=== PATIENT | female | born 1950 | race Caucasian/White ===

== ENCOUNTER 2018-03-05 19:05 | Inpatient (IN) ==
[2018-03-05] MEDS ORDERED: 0.9 % Sodium Chloride 1,000 ML IVC ONE (19:12)
[2018-03-05] MEDS ORDERED: Ondansetron 4 MG/2 ML VIAL IVP ONE (19:12)
--- NOTE | 2018-03-05 19:12 | Emergency Department Note ---
Addendum entered and electronically signed by Jann Galvez DO 03/12/18 09:07: Refer to other notes as indicated. I was involved with the other resident physician in patient care, but he provided the history of present illness, review of systems, physical exam, medical decision-making and disposition. Original Note: Disposition Clinical Impression: Kidney stone on right side UTI (urinary tract infection) Qualifiers: Urinary tract infection type: site unspecified Hematuria presence: with hematuria Qualified Code(s): N39.0 - Urinary tract infection, site not specified Disposition: Admitted As Inpatient Condition: Good General Adult HPI - General Stated complaint: abd pain Time Seen by Provider: 03/05/18 19:11 - Related Data Allergies Allergy/AdvReac Type Severity Reaction Status Date / Time No Known Allergies Allergy Verified 03/05/18 19:08 Medical Decision Making - Lab Data Result diagrams: 03/05/18 19:58 03/05/18 19:58 Attestation Statement - Attestation Attestation: I examined this patient and my medical decision-making was reviewed with the Resident Physician. I agree with the documented findings, disposition and treatment plan as described except to the extent set forth below. 67 year old femael prsents with complaints of worneeing UTI and failing outpatien thearpy, it appears she has an infected kidney stone on the right. rocephin given, urology consulted and patinet admitted to medicine.
[2018-03-05] MEDS ORDERED: *HR* FentaNYL (PF) 100 MCG/2 ML VIAL IVP ONE ×3 (19:13→21:37)
[2018-03-05] MEDS ORDERED: Isovue-370 500 ML INFUS..BTL IV ONE (19:13)
--- NOTE | 2018-03-05 19:52 | Emergency Department Note ---
Disposition Clinical Impression: Kidney stone on right side UTI (urinary tract infection) Qualifiers: Urinary tract infection type: site unspecified Hematuria presence: with hematuria Qualified Code(s): N39.0 - Urinary tract infection, site not specified Disposition: Admitted As Inpatient Condition: Good Time of Disposition: 21:55 General Adult HPI - General Chief complaint: ED Abdominal Pain Stated complaint: abd pain Time Seen by Provider: 03/05/18 19:11 Source: patient Mode of arrival: ambulatory Limitations: no limitations Nursing Notes Reviewed: Yes Vital Signs Reviewed: Yes - History of Present Illness HPI Narrative: 67 year old woman with hx of prior ovarian cancer s/p total hysterectomy-bso, nephrolithiasis presents to ED complaining of R flank pain, RLQ/pelvic pain. She was woke from sleep with sharp RLQ pain with radiation to R pelvis that has worsened as day went on. She was seen at urgent care this morning and diagnosed with UTI and prescribed cipro and pyridium. She said the pain has worsened and now complaining of R flank pain. She additionally has dysuria, subjective fever/chills, N/V x3 today. She says this feels like when she had previous nephrolithiasis. She denies abdominal pain elsewhere, chest pain, sob, constipation, or hematuria. Last BM was yesterday. Pt Subjective Complaint: R flank pain/RLQ Onset (ago): day(s) Location: back, abdomen, right Radiation: distal Pain Severity: severe Pain Scale: 9 Quality: sharp Consistency: Worsening Improves with: nothing Worsens with: nothing Associated symptoms: Reports: fever/chills, nausea/vomiting Treatments Prior to Arrival: other (cipro, pyridium ) - Related Data Allergies Allergy/AdvReac Type Severity Reaction Status Date / Time No Known Allergies Allergy Verified 03/05/18 19:08 All systems ED: reviewed and negative except as stated. Constitutional: Reports: fever, chills Eyes: Denies: vision change Cardiovascular: Denies: chest pain, dyspnea on exertion, edema Respiratory: Denies: cough, dyspnea Gastrointestinal: Reports: abdominal pain, nausea, vomiting, diarrhea. Denies: constipation, hematemesis, melena, hematochezia Genitourinary: Reports: dysuria. Denies: frequency, hematuria Musculoskeletal: Reports: back pain Neurological: Denies: numbness, paresthesias Physical Exam - General Limitations: no limitations General appearance: alert, in no apparent distress - Head Head exam: atraumatic, normocephalic, normal inspection - Eye Eye exam: Present: normal appearance - ENT ENT exam: mucous membranes moist - Neck Neck exam: Present: trachea midline - Chest Chest inspection: Present: normal inspection, symmetric chest wall rise - Abdominal Exam Abdominal exam: Present: soft, tenderness. Absent: distention, guarding, rebound, rigidity Abdominal tenderness: Present: RLQ, suprapubic, moderate - Extremities Exam Extremities exam: Present: normal capillary refill. Absent: pedal edema - Back Exam Back exam: Present: CVA tenderness (R), paraspinal tenderness. Absent: CVA tenderness (L) - Neurological Exam Neurological exam: Present: alert - Psychiatric Psychiatric exam: Present: normal affect - Skin Skin exam: Present: warm, dry, intact, normal color Course Course Narrative: Uncomfortable appearing woman with R flank pain, RLQ/suprapubic/R pelvic tenderness with R CVA tenderness, dysuria. Treated for UTI today at urgent care and feels like prior nephrolithiasis. Tachycardia/htn likely 2/2 pain. Will work up UTI, pyelonephritis, nephrolithiasis. 2033: wbc 13.1, UA with both signs of infection nitrates, esterase, bacteria, wbc, and tntc micro blood and large blood, CT abd 1. 5 mm stone at the right UV junction causes right obstructive uropathy. 2. Fatty infiltration of liver. Mild splenomegaly. Will give 1g ceftriaxone now. Spoke to Dr Braga and he will see her in consult tomorrow after admission. Will admit to hospitalist service. 2139: Pain improved with fentanyl initially, pain returned, will give more pain control. Blood and urine cultures pending. Spoke to Dr Bauman who accepted admission and requested another 1g ceftriaxone and maintenance fluids which are ordered. Vital Signs Temperature 97.4 F L 03/05/18 19:08 Pulse Rate 120 03/05/18 19:08 Respiratory Rate 18 03/05/18 19:08 Blood Pressure 223/85 03/05/18 19:08 O2 Sat by Pulse Oximetry 95 03/05/18 19:08 Temperature 97.4 F L 03/05/18 20:13 Pulse Rate 111 03/05/18 20:46 Respiratory Rate 19 03/05/18 20:46 Blood Pressure 177/94 03/05/18 20:46 O2 Sat by Pulse Oximetry 98 03/05/18 20:46 Oxygen Delivery Oxygen Delivery Room Air Medical Decision Making - Lab Data Result diagrams: 03/05/18 19:58 03/05/18 19:58 Lab Results 03/05/18 03/05/18 03/05/18 Range/Units 19:58 19:58 20:06 WBC 13.2 H (4.3-11.1) K/mcL RBC 5.02 H (3.82-4.97) M/mcL Hgb 15.3 (11.5-15.4) g/dL Hct 44.6 (35.3-44.9) % MCV 88.8 (83.0-100.0) fL MCH 30.5 (28.0-33.3) pg MCHC 34.3 (31.6-35.5) g/dL RDW 13.0 (11.5-14.5) % Plt Count 80 L (140-400) K/mcL MPV 11.7 (9.4-12.4) fL Immature Gran % 0.5 (0-4) % Seg Neutrophils % 96.4 % Lymphocytes % 1.9 % Monocytes % 0.8 % Eosinophils % 0.2 % Basophils % 0.2 % Neutrophils # 12.7 H (1.6-8.9) K/mcL Lymphocytes # 0.3 L (0.6-4.6) K/mcL Monocytes # 0.1 (0.0-1.3) K/mcL Eosinophils # 0.0 (0.0-0.6) K/mcL Basophils # 0.0 (0.0-0.2) K/mcL Reactive Lymphocytes Present A (Not Present) Toxic Granulation Present A (Not Present) Toxic Vacuolation Present A (Not Present) Platelet Estimate Decreased L (Normal) Large Platelets Present A (Not Present) Immature Plt Fraction 9.6 H (1.1-6.1) % Sodium 141 (136-145) mEq/L Potassium 3.2 L (3.5-5.1) mEq/L Chloride 107 (98-107) mEq/L Carbon Dioxide 22 L (23-29) mEq/L BUN 13 (8-23) mg/dL Creatinine 0.94 (0.60-1.20) mg/dL Est GFR ( Amer) > 60 (> 60) Est GFR (Non-Af Amer) 59 L (> 60) BUN/Creatinine Ratio 14 (6-26) Glucose 126 H (70-105) mg/dL Calculated Osmolality 294 (280-300) Lactic Acid (0.5-2.2) mmol/L Calcium 9.7 (8.6-10.3) mg/dL Magnesium (1.6-2.6) mg/dL Total Bilirubin 1.8 H (0.3-1.0) mg/dL AST 33 (13-39) Units/L ALT 17 (7-52) Units/L Alkaline Phosphatase 117 H (34-104) Units/L Serum Total Protein 7.3 (6.4-8.9) g/dL Albumin 4.0 (3.5-5.7) g/dL Globulin 3.3 (2.4-3.5) g/dL Albumin/Globulin Ratio 1.2 (1.1-2.2) Ur Specimen Adequacy See below A Urine Color [place] A (Yellow) Urine Clarity Cloudy A (Clear) Urine pH 6.0 (5.0-8.0) pH Units Ur Specific [place] 1.021 (1.010-1.025) Urine Protein Trace (Neg-Trace) mg/dL Urine Glucose (UA) Normal (Normal) mg/dL Urine Ketones Trace H (Negative) mg/dL Urine Blood Large H (Negative) Urine Nitrite Positive A (Negative) Urine Bilirubin Negative (Negative) Urine Urobilinogen Normal (Normal) mg/dL Ur Leukocyte Esterase Moderate H (Negative) Urine Microscopic RBC TNTC H (0-3) per hpf Urine Microscopic WBC Present (0-3) per hpf Ur Squamous Epith Cells Present (None-Few) per lpf Urine Bacteria Present (None-Few) per hpf Ur Culture Indicated? YES A (NO) 03/05/18 03/05/18 Range/Units 21:14 21:14 WBC (4.3-11.1) K/mcL RBC (3.82-4.97) M/mcL Hgb (11.5-15.4) g/dL Hct (35.3-44.9) % MCV (83.0-100.0) fL MCH (28.0-33.3) pg MCHC (31.6-35.5) g/dL RDW (11.5-14.5) % Plt Count (140-400) K/mcL MPV (9.4-12.4) fL Immature Gran % (0-4) % Seg Neutrophils % % Lymphocytes % % Monocytes % % Eosinophils % % Basophils % % Neutrophils # (1.6-8.9) K/mcL Lymphocytes # (0.6-4.6) K/mcL Monocytes # (0.0-1.3) K/mcL Eosinophils # (0.0-0.6) K/mcL Basophils # (0.0-0.2) K/mcL Reactive Lymphocytes (Not Present) Toxic Granulation (Not Present) Toxic Vacuolation (Not Present) Platelet Estimate (Normal) Large Platelets (Not Present) Immature Plt Fraction (1.1-6.1) % Sodium (136-145) mEq/L Potassium (3.5-5.1) mEq/L Chloride (98-107) mEq/L Carbon Dioxide (23-29) mEq/L BUN (8-23) mg/dL Creatinine (0.60-1.20) mg/dL Est GFR ( Amer) (> 60) Est GFR (Non-Af Amer) (> 60) BUN/Creatinine Ratio (6-26) Glucose (70-105) mg/dL Calculated Osmolality (280-300) Lactic Acid 2.0 (0.5-2.2) mmol/L Calcium (8.6-10.3) mg/dL Magnesium 1.5 L (1.6-2.6) mg/dL Total Bilirubin (0.3-1.0) mg/dL AST (13-39) Units/L ALT (7-52) Units/L Alkaline Phosphatase (34-104) Units/L Serum Total Protein (6.4-8.9) g/dL Albumin (3.5-5.7) g/dL Globulin (2.4-3.5) g/dL Albumin/Globulin Ratio (1.1-2.2) Ur Specimen Adequacy Urine Color (Yellow) Urine Clarity (Clear) Urine pH (5.0-8.0) pH Units Ur Specific [place] (1.010-1.025) Urine Protein (Neg-Trace) mg/dL Urine Glucose (UA) (Normal) mg/dL Urine Ketones (Negative) mg/dL Urine Blood (Negative) Urine Nitrite (Negative) Urine Bilirubin (Negative) Urine Urobilinogen (Normal) mg/dL Ur Leukocyte Esterase (Negative) Urine Microscopic RBC (0-3) per hpf Urine Microscopic WBC (0-3) per hpf Ur Squamous Epith Cells (None-Few) per lpf Urine Bacteria (None-Few) per hpf Ur Culture Indicated? (NO)
[2018-03-05 20:08] LABS: Basophils % 0.2 %; Hemoglobin 15.3 g/dL (11.5-15.4); Immature Granulocytes % 0.5 % (0-4); Mean Corpuscular Volume 88.8 fL (83.0-100.0)
[2018-03-05 20:10] LABS: Eosinophils % 0.2 %; Hematocrit 44.6 % (35.3-44.9); Immature Platelets 9.6 % (1.1-6.1); Lymphocytes # 0.3 K/mcL (0.6-4.6); Lymphocytes % 1.9 %; Mean Corpuscular HGB Conc 34.3 g/dL (31.6-35.5); Mean Corpuscular Hemoglobin 30.5 pg (28.0-33.3); Mean Platelet Volume 11.7 fL (9.4-12.4); Monocytes # 0.1 K/mcL (0.0-1.3); Monocytes % 0.8 %; Neutrophils # 12.7 K/mcL (1.6-8.9); Platelet Count 80 K/mcL (140-400); Red Blood Count 5.02 M/mcL (3.82-4.97); Segmented Neutrophils % 96.4 %
[2018-03-05 20:21] LABS: Bilirubin,Urine Negative (Negative); Blood,Urine Large (Negative); Color,Urine Orange (Yellow); Glucose,Urine (UA) Normal (Normal); Ketones,Urine Trace mg/dL (Negative); Leukocyte Esterase,Urine Moderate (Negative); Nitrite,Urine Positive (Negative); Protein,Urine Trace mg/dL (Neg-Trace); Specific Gravity,Urine 1.021 (1.010-1.025); Urobilinogen,Urine Normal (Normal)
[2018-03-05 20:22] LABS: Clarity,Urine Cloudy (Clear)
[2018-03-05 20:24] LABS: RBC,Urine TNTC per hpf (0-3)
[2018-03-05] MEDS ORDERED: cefTRIAXone 1,000 MG in Water for inj. (sterile) 20 ML 10 ML IVP ONE ×2 (20:24→21:35)
[2018-03-05 20:25] LABS: Bacteria,Urine Present per hpf (None-Few); Squamous Epithelial Cell,Urine Present per lpf (None-Few); WBC,Urine Present per hpf (0-3)
[2018-03-05 20:26] LABS: Large Platelets Present (Not Present); Platelet Estimate Decreased (Normal); Reactive Lymphocytes Present (Not Present); Toxic Granulation Present (Not Present); Toxic Vacuolation Present (Not Present)
[2018-03-05 20:27] LABS: Alanine Aminotransferase 17 Units/L (7-52); Albumin/Globulin Ratio 1.2 (1.1-2.2); Alkaline Phosphatase 117 Units/L (34-104); Aspartate Amino Transferase 33 Units/L (13-39); BUN/Creatinine Ratio 14 (6-26); Bilirubin,Total 1.8 mg/dL (0.3-1.0); Blood Urea Nitrogen 13 mg/dL (8-23); Calcium 9.7 mg/dL (8.6-10.3); Carbon Dioxide 22 mEq/L (23-29); Chloride 107 mEq/L (98-107); Globulin 3.3 g/dL (2.4-3.5); Glucose 126 mg/dL (70-105); Osmolality,Calculated 294 (280-300); Potassium 3.2 mEq/L (3.5-5.1); Sodium 141 mEq/L (136-145); Total Protein 7.3 g/dL (6.4-8.9); eGFR For Non-African Americans 59 (> 60)
--- NOTE | 2018-03-05 21:24 | Emergency Department Note ---
Disposition Clinical Impression: Kidney stone on right side UTI (urinary tract infection) Qualifiers: Urinary tract infection type: site unspecified Hematuria presence: with hematuria Qualified Code(s): N39.0 - Urinary tract infection, site not specified; R31.9 - Hematuria, unspecified Disposition: Admitted As Inpatient Referrals: Marvin Jade MD [Primary Care Provider] - Forms: ED Satisfaction Letter, Work/School Release General Adult HPI - General Chief complaint: ED Abdominal Pain Stated complaint: abd pain Time Seen by Provider: 03/05/18 19:11 Source: patient Mode of arrival: ambulatory Limitations: no limitations - History of Present Illness Location: back, abdomen, right Pain Scale: 6 Quality: sharp Improves with: nothing Worsens with: nothing Associated symptoms: Reports: fever/chills, nausea/vomiting Treatments Prior to Arrival: other (cipro, pyridium ) - Related Data Allergies Allergy/AdvReac Type Severity Reaction Status Date / Time No Known Allergies Allergy Verified 03/05/18 19:08 Constitutional: Reports: fever, chills Eyes: Denies: vision change Cardiovascular: Denies: chest pain, dyspnea on exertion, edema Respiratory: Denies: cough, dyspnea Gastrointestinal: Reports: abdominal pain, nausea, vomiting, diarrhea. Denies: constipation, hematemesis, melena, hematochezia Genitourinary: Reports: dysuria. 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 - Social History Smoking Status: Never smoker Smokeless Tobacco Status: No Alcohol use: Reports: none Drug use: Reports: none Physical Exam - General Limitations: no limitations General appearance: alert, in no apparent distress Course Vital Signs Temperature 97.4 F L 03/05/18 19:08 Pulse Rate 120 03/05/18 19:08 Respiratory Rate 18 03/05/18 19:08 Blood Pressure 223/85 03/05/18 19:08 O2 Sat by Pulse Oximetry 95 03/05/18 19:08 Temperature 97.4 F L 03/05/18 20:13 Pulse Rate 111 03/05/18 20:46 Respiratory Rate 19 03/05/18 20:46 Blood Pressure 177/94 03/05/18 20:46 O2 Sat by Pulse Oximetry 98 03/05/18 20:46 Oxygen Delivery Oxygen Delivery Room Air Medical Decision Making - Lab Data Result diagrams: 03/05/18 19:58 03/05/18 19:58 Lab Results 03/05/18 03/05/18 03/05/18 Range/Units 19:58 19:58 20:06 WBC 13.2 H (4.3-11.1) K/mcL RBC 5.02 H (3.82-4.97) M/mcL Hgb 15.3 (11.5-15.4) g/dL Hct 44.6 (35.3-44.9) % MCV 88.8 (83.0-100.0) fL MCH 30.5 (28.0-33.3) pg MCHC 34.3 (31.6-35.5) g/dL RDW 13.0 (11.5-14.5) % Plt Count 80 L (140-400) K/mcL MPV 11.7 (9.4-12.4) fL Immature Gran % 0.5 (0-4) % Seg Neutrophils % 96.4 % Lymphocytes % 1.9 % Monocytes % 0.8 % Eosinophils % 0.2 % Basophils % 0.2 % Neutrophils # 12.7 H (1.6-8.9) K/mcL Lymphocytes # 0.3 L (0.6-4.6) K/mcL Monocytes # 0.1 (0.0-1.3) K/mcL Eosinophils # 0.0 (0.0-0.6) K/mcL Basophils # 0.0 (0.0-0.2) K/mcL Reactive Lymphocytes Present A (Not Present) Toxic Granulation Present A (Not Present) Toxic Vacuolation Present A (Not Present) Platelet Estimate Decreased L (Normal) Large Platelets Present A (Not Present) Immature Plt Fraction 9.6 H (1.1-6.1) % Sodium 141 (136-145) mEq/L Potassium 3.2 L (3.5-5.1) mEq/L Chloride 107 (98-107) mEq/L Carbon Dioxide 22 L (23-29) mEq/L BUN 13 (8-23) mg/dL Creatinine 0.94 (0.60-1.20) mg/dL Est GFR ( Amer) > 60 (> 60) Est GFR (Non-Af Amer) 59 L (> 60) BUN/Creatinine Ratio 14 (6-26) Glucose 126 H (70-105) mg/dL Calculated Osmolality 294 (280-300) Calcium 9.7 (8.6-10.3) mg/dL Total Bilirubin 1.8 H (0.3-1.0) mg/dL AST 33 (13-39) Units/L ALT 17 (7-52) Units/L Alkaline Phosphatase 117 H (34-104) Units/L Serum Total Protein 7.3 (6.4-8.9) g/dL Albumin 4.0 (3.5-5.7) g/dL Globulin 3.3 (2.4-3.5) g/dL Albumin/Globulin Ratio 1.2 (1.1-2.2) Ur Specimen Adequacy See below A Urine Color [place] A (Yellow) Urine Clarity Cloudy A (Clear) Urine pH 6.0 (5.0-8.0) pH Units Ur Specific [place] 1.021 (1.010-1.025) Urine Protein Trace (Neg-Trace) mg/dL Urine Glucose (UA) Normal (Normal) mg/dL Urine Ketones Trace H (Negative) mg/dL Urine Blood Large H (Negative) Urine Nitrite Positive A (Negative) Urine Bilirubin Negative (Negative) Urine Urobilinogen Normal (Normal) mg/dL Ur Leukocyte Esterase Moderate H (Negative) Urine Microscopic RBC TNTC H (0-3) per hpf Urine Microscopic WBC Present (0-3) per hpf Ur Squamous Epith Cells Present (None-Few) per lpf Urine Bacteria Present (None-Few) per hpf Ur Culture Indicated? YES A (NO) Attestation Statement - Attestation Attestation: I examined this patient and my medical decision-making was reviewed with the Resident Physician. I agree with the documented findings, disposition and treatment plan as described except to the extent set forth below. 67 year old female presents to the ED with complaints of UTI and abdominal pian and meeting SIRS criteria, it appers she has a infected kidney stone on the right and WBC of 13. WE hae treatd gab [place] , [facility] and [facility] urology who will see her in the morning with admission to medicine
[2018-03-05] MEDS ORDERED: 0.9 % Sodium Chloride 1,000 ML IVC SCH (21:45)
[2018-03-05] MEDS ORDERED: *HR* Metoprolol 5 MG/5 ML VIAL IVP PRN ×2 (22:47→22:52)
[2018-03-05] MEDS ORDERED: Naloxone 0.4 MG/ML INJ IVP PRN (23:26)
[2018-03-05] MEDS ORDERED: *HR* OxyCODONE/APAP 5/325 TABLET PO PRN (23:28)
[2018-03-05] MEDS ORDERED: *HR* FentaNYL (PF) 100 MCG/2 ML VIAL IVP PRN (23:28)
[2018-03-05] MEDS ORDERED: Ondansetron 4 MG/2 ML VIAL IVP PRN (23:37)
--- NOTE | 2018-03-05 23:59 | Internal Med History&Physical ---
<Charles Cai Elaine - Last Filed: 03/06/18 00:40> Date of Encounter: 03/05/18 Time of Encounter: 23:38 Internal Medicine - H&P: HPI Chief complaint: Abdominal/Flank Pain with Dysuria Admitted From: Emergency Dept Plans for Post Hospital Care: Home History of present illness: Ms. Corea is a 67 year old female with a past medical history of ovarian cancer status post total hysterectomy, nephrolithiasis, bladder repair, cholecystectomy, goiter, hypertension. She presented to the emergency department after a day and a half of abdominal pain, right flank pain, dysuria that did not improve with outpatient therapy. She states her symptoms began last night and carried on to this morning wherein she visited the urgent care. She confirms associated symptoms of nausea, vomiting, fever, chills. Her symptoms continued to aggressively worsen causing her to present to the ED. On presentation to the emergency department vitals were significant for tachycardia, hypertension, mildly decreased temperature. Lab values were significant for mildly elevated white count of 13.2, thrombocytopenia, hypokalemia, hypomagnesemia, hyperbilirubinemia, elevated alkaline phosphatase. Urinalysis demonstrated gross and microscopic blood, nitrates and leukocyte esterase, white blood cells. Urine culture and blood cultures were obtained and patient was given [address] abdomen and pelvis was performed which demonstrated an obstructive 5 mm stone at the right ureterovesicular junction. Urology was consulted. Social history negative for smoking, alcohol, drugs. Family history positive for multiple UTIs and pyelonephritis in mother, noncontributory in father or siblings. Past Med Surg Social Fam HX - Past Medical History Medical history: cancer, kidney stones, other Psychiatric history: no psych history - Past Surgical History Surgical History: hysterectomy Additional surgical history: bladder repair, Ovarian Ca, - Social History Smoking Status: Never smoker Smokeless Tobacco Status: No Alcohol use: none Drug use: none Internal Medicine - H&P: Meds Ciprofloxacin [Cipro] 500 mg PO BID 03/05/18 [History] Ergocalciferol (VITAMIN D2) [Vitamin D2] 50,000 unit PO QWEEK 03/05/18 [History] Ibuprofen [Ibu] 400 mg PO TIDWM 03/05/18 [History] Levothyroxine [Synthroid] 150 mcg PO DAILY 03/05/18 [History] Metoprolol Tartrate 100 mg PO BID 03/05/18 [History] Phenazopyrid/Cran/Vit C/B.coag [Azo Urinary Tract Health Pack] 1 each PO TID 03/05/18 [History] Allergy/AdvReac Type Severity Reaction Status Date / Time No Known Allergies Allergy Verified 03/05/18 19:08 All Systems PM: A 10-system review of systems was performed and is negative for pertinent findings except as documented above in the HPI. - Constitutional Vitals: Temp Pulse Resp BP Pulse Ox 97.4 F L 114 16 198/94 97 03/05/18 20:13 03/05/18 22:12 03/05/18 22:12 03/05/18 22:12 03/05/18 22:12 Exam: Patient in no acute distress Alert and oriented 3 Anxious affect Pupils equal and reactive to light Cranial nerves II through XII intact Neck supple, no JVD, positive for bilateral submandibular lymphadenopathy Heart in tachycardic rate and regular rhythm Lungs clear to auscultation bilaterally Abdomen soft and mildly tender to right lower quadrant, normal bowel sounds present Right flank tender to palpation Bilateral lower extremities 1+ pitting edematous Skin warm and dry Internal Med - H&P Results - Labs CBC & Chem 7: 03/05/18 19:58 03/05/18 19:58 Labs: Short CBC 03/05/18 Range/Units 19:58 WBC 13.2 H (4.3-11.1) K/mcL Hgb 15.3 (11.5-15.4) g/dL Hct 44.6 (35.3-44.9) % Plt Count 80 L (140-400) K/mcL Neutrophils # 12.7 H (1.6-8.9) K/mcL BMP 03/05/18 19:58 Sodium 141 Potassium 3.2 L Chloride 107 Carbon Dioxide 22 L BUN 13 Creatinine 0.94 Glucose 126 H Calcium 9.7 Liver Function 03/05/18 Range/Units 19:58 Total Bilirubin 1.8 H (0.3-1.0) mg/dL AST 33 (13-39) Units/L ALT 17 (7-52) Units/L Alkaline Phosphatase 117 H (34-104) Units/L Albumin 4.0 (3.5-5.7) g/dL Urine 03/05/18 Range/Units 20:06 Urine Color [place] A (Yellow) Urine Clarity Cloudy A (Clear) Urine pH 6.0 (5.0-8.0) pH Units Ur Specific [place] 1.021 (1.010-1.025) Urine Protein Trace (Neg-Trace) mg/dL Urine Glucose (UA) Normal (Normal) mg/dL - Impressions ITS Impressions Abdomen/Pelvis CT 03/05/18 19:38 IMPRESSION: 1. 5 mm stone at the right UV junction causes right obstructive uropathy. 2. Fatty infiltration of liver. Mild splenomegaly. D/ / 03/05/2018 21:04:58 Carmen Gallo MD / bcarter Interpreting Provider: Carmen Gallo MD - Assessment and plan (1) Sepsis Current Visit: Yes Status: Acute Assessment and plan: Patient presented with 2 days of right lower quadrant abdominal pain and right flank pain with associated dysuria Vitals revealed hypertension, tachycardia, mild hypothermia Urinalysis revealed gross and microscopic blood, nitrates, leukocyte esterase, white blood cells Labs revealed mild leukocytosis, technically sepsis, stable clinical condition Plan Fluid bolus given and maintenance fluids started at 150 mL per hour Blood and urine cultures pending 2 g Rocephin given and scheduled daily Continuous pulse oximetry and cardiac telemetry Sepsis reassessment at 0600 Qualifiers: Sepsis type: sepsis due to unspecified organism Qualified Code(s): A41.9 - Sepsis, unspecified organism (2) UTI (urinary tract infection) Current Visit: Yes Status: Acute Assessment and plan: Urinalysis as seen above Plan as seen above Qualifiers: Urinary tract infection type: site unspecified Hematuria presence: with hematuria Qualified Code(s): N39.0 - Urinary tract infection, site not specified; R31.9 - Hematuria, unspecified (3) Kidney stone on right side Current Visit: Yes Status: Acute Assessment and plan: 5 mm obstructive stone identified at the right ureterovesicular junction on CT abdomen and pelvis Patient instructed to urinate into hat for screening Urology consultation in the morning Percocet every 6 when necessary for pain control Zofran every 6 hours when necessary for nausea control Fluid regimen as seen above (4) Hypokalemia Current Visit: Yes Status: Acute Assessment and plan: Potassium 3.2 presentation 40 mEq given oral in the emergency department Repeat CMP at 0400 (5) Hypertension Current Visit: Yes Status: Acute Assessment and plan: Patient presented with systolic over 200 Patient is apparently being titrated on blood pressure medications in an outpatient setting We will continue home metoprolol 100 mg twice a day here We will also include hydralazine when necessary for blood pressure control Blood pressure currently stable Qualifiers: Hypertension type: unspecified Qualified Code(s): I10 - Essential (primary) hypertension (6) DVT prophylaxis Current Visit: Yes Status: Acute Assessment and plan: Intermittent pneumatic compression devices 3 times a day Patient currently mildly thrombocytopenic Potential for possible procedure in the morning We will hold anticoagulation - Time Spent With Patient Total time spent is greater than 50% in coordination of care (as documented) at patient's floor/unit and/or counseling patient: <Jose Bauman - Last Filed: 03/06/18 03:55> Date of Encounter: 03/06/18 Time of Encounter: 01:40 - Constitutional Constitutional: chills, fever(s), no night sweats - EENT Eyes: no blurry vision, no change in vision Ears: no ear pain, no tinnitus Nose, mouth and throat: no nasal congestion, no sore throat - Cardiovascular Cardiovascular ROS IM: no chest pain, no dyspnea - Respiratory Respiratory: no cough, no chest congestion, no excessive phlegm production, no change in phlegm color - Gastrointestinal Gastrointestinal: nausea, vomiting, no abdominal pain, no diarrhea, no hematemesis, no hematochezia, no melena - Genitourinary Genitourinary: dysuria, flank pain, urinary frequency, urinary urgency, no hematuria - Musculoskeletal Musculoskeletal ROS IM: no arthralgias, no muscle cramps - Integumentary Integumentary IM: no rash, no jaundice - Neurological Neurological ROS: no dizziness, no focal weakness, no frequent falls, no headache(s) - Psychiatric Psychiatric: no anxiety, no depression - Endocrine Endocrine IM: no polydipsia, no polyuria - Allergic/Immunologic Allergic/Immunologic: no GI upset with certain foods - Constitutional Vitals: Temp Pulse Resp BP Pulse Ox 98 F 107 16 142/83 97 03/05/18 23:36 03/05/18 23:36 03/05/18 23:36 03/05/18 23:36 03/05/18 23:36 General appearance: Present: cooperative, mild distress, A&O X 3, pleasant, answers questions appropriately - Head Head exam: Present: normal inspection - Eye Eye exam: Present: PERRL. Absent: scleral icterus - ENT ENT exam: Present: mucous membranes dry, normal exam, normal oropharynx - Neck Neck exam general surgery: Present: full ROM, supple. Absent: tenderness, nuchal rigidity, thyromegaly - Respiratory Respiratory exam: Present: CTAB. Absent: chest wall tenderness, rales, rhonchi, wheezes - Cardiovascular Cardiovascular exam: Present: +S1, +S2, tachycardia. Absent: diastolic murmur, systolic murmur - GI/Abdominal GI/Abdominal exam: Present: normal bowel sounds, soft, tenderness (right flank radiating to right suprapubic area). Absent: hepatomegaly, mass, splenomegaly - Extremities Exam Extremities exam: Present: warm, radial pulses palpable and symmetrical. Absent: calf tenderness, pedal edema, tenderness - Back Exam Back exam: Present: CVA tenderness (R), normal inspection. Absent: CVA tend erness (L) - Neurological Exam Neurological exam: Present: alert, CN II-XII intact, oriented X3 - Skin Skin exam: Present: dry, intact, warm Internal Med - H&P Results - Labs CBC & Chem 7: 03/05/18 19:58 03/05/18 19:58 Labs: Short CBC 03/05/18 Range/Units 19:58 WBC 13.2 H (4.3-11.1) K/mcL Hgb 15.3 (11.5-15.4) g/dL Hct 44.6 (35.3-44.9) % Plt Count 80 L (140-400) K/mcL Neutrophils # 12.7 H (1.6-8.9) K/mcL BMP 03/05/18 19:58 Sodium 141 Potassium 3.2 L Chloride 107 Carbon Dioxide 22 L BUN 13 Creatinine 0.94 Glucose 126 H Calcium 9.7 Liver Function 03/05/18 Range/Units 19:58 Total Bilirubin 1.8 H (0.3-1.0) mg/dL AST 33 (13-39) Units/L ALT 17 (7-52) Units/L Alkaline Phosphatase 117 H (34-104) Units/L Albumin 4.0 (3.5-5.7) g/dL Urine 03/05/18 Range/Units 20:06 Urine Color [place] A (Yellow) Urine Clarity Cloudy A (Clear) Urine pH 6.0 (5.0-8.0) pH Units Ur Specific [place] 1.021 (1.010-1.025) Urine Protein Trace (Neg-Trace) mg/dL Urine Glucose (UA) Normal (Normal) mg/dL - Impressions ITS Impressions Abdomen/Pelvis CT 03/05/18 19:38 IMPRESSION: 1. 5 mm stone at the right UV junction causes right obstructive uropathy. 2. Fatty infiltration of liver. Mild splenomegaly. D/ / 03/05/2018 21:04:58 Carmen Gallo MD / bcarter Interpreting Provider: Carmen Gallo MD - Assessment and plan (1) Kidney stone on right side Current Visit: Yes Status: Acute (2) UTI (urinary tract infection) Current Visit: Yes Status: Acute Qualifiers: Urinary tract infection type: site unspecified Hematuria presence: with hematuria Qualified Code(s): N39.0 - Urinary tract infection, site not specified; R31.9 - Hematuria, unspecified (3) Hypertension Current Visit: Yes Status: Acute Qualifiers: Hypertension type: unspecified Qualified Code(s): I10 - Essential (primary) hypertension (4) Sepsis Current Visit: Yes Status: Acute Qualifiers: Sepsis type: sepsis due to unspecified organism Qualified Code(s): A41.9 - Sepsis, unspecified organism (5) Hypokalemia Current Visit: Yes Status: Acute (6) DVT prophylaxis Current Visit: Yes Status: Acute - Time Spent With Patient Total time spent is greater than 50% in coordination of care (as documented) at patient's floor/unit and/or counseling patient: - Attending Attestation I discussed the patient [place], past medical history, review of systems, lab data, exam findings, and imaging findings with Dr. Cai. I then saw and examined patient independently as well. Patient appears to be quite ill but nontoxic. She does meet sepsis criteria. She still appears to be dry. She has clinical and historical findings to suggest and support pyelonephritis with sepsis. Blood pressure is preserved, however. Blood and urine cultures have been obtained. We will place her on high-dose Rocephin. Urology has been consulted, and she will likely need cystoscopy today to help alleviate her obstruction. She denies any chest pain, shortness of breath, cough, or hemoptysis. She has had some nausea and vomiting but no diarrhea. On exam, she appears dry as noted above. We will continue current plan and await urologic intervention later today. We will keep her on telemetry and close monitoring of her hemodynamic status. Other than my comments above and noted physical exam findings, I agree Dr. Cai's assessment and plan.
[2018-03-06 04:10] LABS: Basophils % 0.2 %; Mean Corpuscular Volume 90.6 fL (83.0-100.0); Red Cell Distribution Width 13.2 % (11.5-14.5)
[2018-03-06 04:12] LABS: Basophils # 0.1 K/mcL (0.0-0.2); Hematocrit 39.5 % (35.3-44.9); Hemoglobin 13.2 g/dL (11.5-15.4); Immature Granulocytes % 0.9 % (0-4); Immature Platelets 11.3 % (1.1-6.1); Lymphocytes # 0.5 K/mcL (0.6-4.6); Mean Corpuscular HGB Conc 33.4 g/dL (31.6-35.5); Mean Corpuscular Hemoglobin 30.3 pg (28.0-33.3); Mean Platelet Volume 12.1 fL (9.4-12.4); Monocytes # 1.1 K/mcL (0.0-1.3); Monocytes % 4.5 %; Neutrophils # 22.6 K/mcL (1.6-8.9); Red Blood Count 4.36 M/mcL (3.82-4.97); Segmented Neutrophils % 92.4 %
[2018-03-06 04:18] LABS: Platelet Count 77 K/mcL (140-400)
[2018-03-06 04:33] LABS: Alanine Aminotransferase 16 Units/L (7-52); Albumin 3.2 g/dL (3.5-5.7); Albumin/Globulin Ratio 1.1 (1.1-2.2); Alkaline Phosphatase 77 Units/L (34-104); Aspartate Amino Transferase 23 Units/L (13-39); BUN/Creatinine Ratio 13 (6-26); Bilirubin,Total 0.7 mg/dL (0.3-1.0); Blood Urea Nitrogen 11 mg/dL (8-23); Calcium 8.5 mg/dL (8.6-10.3); Carbon Dioxide 23 mEq/L (23-29); Chloride 111 mEq/L (98-107); Globulin 2.8 g/dL (2.4-3.5); Glucose 159 mg/dL (70-105); Magnesium 1.9 mg/dL (1.6-2.6); Osmolality,Calculated 295 (280-300); Potassium 4.1 mEq/L (3.5-5.1); Sodium 141 mEq/L (136-145); eGFR For Non-African Americans > 60 (> 60)
[2018-03-06] MEDS ORDERED: *HR* Heparin 5,000 UNIT/ML VIAL SQ SCH (06:00)
[2018-03-06] MEDS ORDERED: *HR* Propofol 200 MG/20 ML VIAL IVP ONE (07:04)
[2018-03-06] MEDS ORDERED: Ondansetron 4 MG/2 ML VIAL ONE (07:04)
[2018-03-06] MEDS ORDERED: Dexamethasone 4 MG/ML VIAL ONE (07:04)
[2018-03-06] MEDS ORDERED: Lidocaine -MPF 2% 2 ML VIAL ONE (07:04)
[2018-03-06] MEDS ORDERED: *HR* FentaNYL (PF) 100 MCG/2 ML VIAL ONE (07:04)
[2018-03-06] MEDS ORDERED: *HR* Midazolam HCl 2 MG/2 ML VIAL ONE (07:08)
--- NOTE | 2018-03-06 07:10 | Urology - Consult Note ---
Date of Encounter: 03/06/18 Time of Encounter: 07:07 - Assessment and Plan (1) Right ureteral stone Current Visit: Yes Status: Acute Assessment and plan: We will plan on performing cystoscopy and right ureteral stent placement today. (2) UTI (urinary tract infection) Current Visit: Yes Status: Acute Assessment and plan: Patient will need to continue with broad-spectrum antibiotics until cultures return. Qualifiers: Urinary tract infection type: site unspecified Hematuria presence: with hematuria Qualified Code(s): N39.0 - Urinary tract infection, site not specified; R31.9 - Hematuria, unspecified Urology CN:HPI Consult date: 03/06/18 Reason for consult Urology: Hydronephrosis Requesting physician: Charles Cai History of present illness: Mary is a 67-year-old female who presented to emergency Department yesterday secondary to severe unrelenting right-sided flank pain. Patient was treated on Wednesday for a possible UTI with urgent care. Patient was found to have a 5 mm distal right ureteral stone on CT scan. Patient also with nitrite positive urinalysis. Patient initially without any fevers. Her WBC count has increased to 24,000 overnight. Patient states her pain is controlled with pills at this time. No current nausea or vomiting. Past Med Surg Social Fam HX - Past Medical History Medical history: cancer, kidney stones, other Psychiatric history: no psych history - Past Surgical History Surgical History: hysterectomy Additional surgical history: bladder repair, Ovarian Ca, - Social History Smoking Status: Never smoker Smokeless Tobacco Status: No Alcohol use: none Drug use: none Medications and Allergies Ciprofloxacin [Cipro] 500 mg PO BID 03/05/18 [History] Ergocalciferol (VITAMIN D2) [Vitamin D2] 50,000 unit PO QWEEK 03/05/18 [History] Ibuprofen [Ibu] 400 mg PO TIDWM 03/05/18 [History] Levothyroxine [Synthroid] 150 mcg PO DAILY 03/05/18 [History] Metoprolol Tartrate 100 mg PO BID 03/05/18 [History] Phenazopyrid/Cran/Vit C/B.coag [Azo Urinary Tract Health Pack] 1 each PO TID 03/05/18 [History] Allergy/AdvReac Type Severity Reaction Status Date / Time No Known Allergies Allergy Verified 03/05/18 19:08 Review of Systems - Constitutional no chills, no fever(s) - EENT Nose, mouth and throat: no dizziness - Cardiovascular no chest pain - Respiratory no cough Exam Initial Vital Signs Temp Pulse Resp BP Pulse Ox 97.4 F L 120 18 223/85 95 03/05/18 19:08 03/05/18 19:08 03/05/18 19:08 03/05/18 19:08 03/05/18 19:08 - General physical appearance Present: well developed, well nourished - Eyes Present: PERRL - Cardiovascular Cardiovascular exam IM: RRR - Abdomen Abdomen: Present: soft Urology Results - Labs 03/06/18 03:50 03/06/18 03:50 Abnormal lab results WBC 24.5 K/mcL (4.3-11.1) H D 03/06/18 03:50 Plt Count 77 K/mcL (140-400) L 03/06/18 03:50 Neutrophils # 22.6 K/mcL (1.6-8.9) H 03/06/18 03:50 Lymphocytes # 0.5 K/mcL (0.6-4.6) L 03/06/18 03:50 Reactive Lymphocytes Present (Not Present) A 03/05/18 19:58 Toxic Granulation Present (Not Present) A 03/05/18 19:58 Toxic Vacuolation Present (Not Present) A 03/05/18 19:58 Platelet Estimate Decreased (Normal) L 03/05/18 19:58 Large Platelets Present (Not Present) A 03/05/18 19:58 Immature Plt Fraction 11.3 % (1.1-6.1) H 03/06/18 03:50 Chloride 111 mEq/L (98-107) H 03/06/18 03:50 Glucose 159 mg/dL (70-105) H 03/06/18 03:50 Calcium 8.5 mg/dL (8.6-10.3) L 03/06/18 03:50 Serum Total Protein 6.0 g/dL (6.4-8.9) L 03/06/18 03:50 Albumin 3.2 g/dL (3.5-5.7) L 03/06/18 03:50 Ur Specimen Adequacy See below A 03/05/18 20:06 Urine Color [place] (Yellow) A 03/05/18 20:06 Urine Clarity Cloudy (Clear) A 03/05/18 20:06 Urine Ketones Trace mg/dL (Negative) H 03/05/18 20:06 Urine Blood Large (Negative) H 03/05/18 20:06 Urine Nitrite Positive (Negative) A 03/05/18 20:06 Ur Leukocyte Esterase Moderate (Negative) H 03/05/18 20:06 Urine Microscopic RBC TNTC per hpf (0-3) H 03/05/18 20:06 Ur Culture Indicated? YES (NO) A 03/05/18 20:06 Diabetes panel 03/05/18 03/06/18 Range/Units 19:58 03:50 Sodium 141 141 (136-145) mEq/L Potassium 3.2 L 4.1 D (3.5-5.1) mEq/L Chloride 107 111 H (98-107) mEq/L Carbon Dioxide 22 L 23 (23-29) mEq/L BUN 13 11 (8-23) mg/dL Creatinine 0.94 0.82 (0.60-1.20) mg/dL Glucose 126 H 159 H (70-105) mg/dL Calcium 9.7 8.5 L (8.6-10.3) mg/dL AST 33 23 (13-39) Units/L ALT 17 16 (7-52) Units/L Alkaline Phosphatase 117 H 77 (34-104) Units/L Albumin 4.0 3.2 L (3.5-5.7) g/dL Calcium panel 03/05/18 03/06/18 Range/Units 19:58 03:50 Calcium 9.7 8.5 L (8.6-10.3) mg/dL Albumin 4.0 3.2 L (3.5-5.7) g/dL Pituitary panel 03/05/18 03/06/18 Range/Units 19:58 03:50 Sodium 141 141 (136-145) mEq/L Potassium 3.2 L 4.1 D (3.5-5.1) mEq/L Chloride 107 111 H (98-107) mEq/L Carbon Dioxide 22 L 23 (23-29) mEq/L BUN 13 11 (8-23) mg/dL Creatinine 0.94 0.82 (0.60-1.20) mg/dL Glucose 126 H 159 H (70-105) mg/dL Calcium 9.7 8.5 L (8.6-10.3) mg/dL Adrenal panel 03/05/18 03/06/18 Range/Units 19:58 03:50 Sodium 141 141 (136-145) mEq/L Potassium 3.2 L 4.1 D (3.5-5.1) mEq/L Chloride 107 111 H (98-107) mEq/L Carbon Dioxide 22 L 23 (23-29) mEq/L BUN 13 11 (8-23) mg/dL Creatinine 0.94 0.82 (0.60-1.20) mg/dL Glucose 126 H 159 H (70-105) mg/dL Calcium 9.7 8.5 L (8.6-10.3) mg/dL Total Bilirubin 1.8 H 0.7 (0.3-1.0) mg/dL AST 33 23 (13-39) Units/L ALT 17 16 (7-52) Units/L Alkaline Phosphatase 117 H 77 (34-104) Units/L Albumin 4.0 3.2 L (3.5-5.7) g/dL All other labs normal. - Imaging CT scan - abdomen: image reviewed CT scan - pelvis: image reviewed Consult Discharge Plan - Plan Referrals: Marvin Jade MD [Primary Care Provider] -
--- NOTE | 2018-03-06 07:17 | Anesthesia Evaluation PreOp ---
Date of Encounter: 03/06/18 Time of Encounter: 07:15 - Past History Planned Operation: R-ureteroscopic stone extraction Cardiac History: HTN Pulmonary History: Denies Any Significant HX CERTIFIED HYPERBARIC TECHNICIAN History: Denies Any Significant HX Other Medical History: Thyroid (Hypothyroidism), Other (Hx ovarian Ca s/p JOVANNY) Anesthesia History: No Prior Anesthetic Complications, Past Anesthesia (JOVANNY,) Alcohol Use: none Drug use: none Medications and Allergies Ciprofloxacin [Cipro] 500 mg PO BID 03/05/18 [History] Ergocalciferol (VITAMIN D2) [Vitamin D2] 50,000 unit PO QWEEK 03/05/18 [History] Ibuprofen [Ibu] 400 mg PO TIDWM 03/05/18 [History] Levothyroxine [Synthroid] 150 mcg PO DAILY 03/05/18 [History] Metoprolol Tartrate 100 mg PO BID 03/05/18 [History] Phenazopyrid/Cran/Vit C/B.coag [Azo Urinary Tract Health Pack] 1 each PO TID 03/05/18 [History] Allergy/AdvReac Type Severity Reaction Status Date / Time No Known Allergies Allergy Verified 03/05/18 19:08 - Meds/Allergy Pre-op Review Medications Reviewed: Yes Allergies Reviewed: Yes Beta Blockers on Current Med List: Yes (Metoprolol) Anesthesia Results - Labs 03/06/18 03:50 03/06/18 03:50 Laboratory Tests 03/06/18 03:50 Calcium 8.5 L Magnesium 1.9 Laboratory Results Impressions Abdomen/Pelvis CT 03/05/18 19:38 IMPRESSION: 1. 5 mm stone at the right UV junction causes right obstructive uropathy. 2. Fatty infiltration of liver. Mild splenomegaly. D/ / 03/05/2018 21:04:58 Carmen Gallo MD / bcarter Interpreting Provider: Carmen Gallo MD Anesthesia Exam Vital Signs Temp Pulse Resp BP Pulse Ox 03/06/18 06:43 98.4 F 71 18 151/74 99 03/06/18 04:40 97.9 F 89 15 138/78 98 03/05/18 23:36 98 F 107 16 142/83 97 03/05/18 22:12 114 16 198/94 97 03/05/18 20:46 111 19 177/94 98 03/05/18 20:13 97.4 F L 111 19 177/94 98 03/05/18 19:08 97.4 F L 120 18 223/85 95 Height: 5'2" Weight: 221# BMI = 41 NPO (# of Hours): MNoc - HEENT Pupil (Motor): Pupils equal, EOMI Mallampati: III Teeth: Normal Oral Opening: Greater than 3 - CERTIFIED HYPERBARIC TECHNICIAN LOC: Oriented CERTIFIED HYPERBARIC TECHNICIAN Motor: Normal RUE, Normal LUE, Normal RLE, Normal LLE, Normal Face CERTIFIED HYPERBARIC TECHNICIAN Sensory: Normal: RUE, LUE, RLE, LLE, Face - Cardiac Rhythm: Regular Murmur: None JVD: No - Pulmonary Breath Sounds: bilateral Clear Respiratory Effort: Symmetrical Anesthesia Assess/Plan ASA Score: 3 (MO/BMI = 42, HTN, Hx ovarian Ca) Modified Yogi Scale for Level of Consciousness: Cooperative, oriented, and tranquil Anesthetic Plan: General Monitoring Plan: Standard Monitors Recovery Plan: PACU Anes Supervising Prov Stmt: PT seen/evaluated, R&B Discussed, questions answered and consent obtained. Marlene Higgins MD
[2018-03-06] MEDS ORDERED: *HR* Labetalol 20 MG/4 ML SYRINGE IVP PRN (07:40)
[2018-03-06] MEDS ORDERED: *HR* Morphine 2 MG/ML SYRINGE IVP PRN (07:40)
[2018-03-06] MEDS ORDERED: Famotidine 20 MG/2 ML VIAL ONE (08:07)
[2018-03-06] MEDS ORDERED: Acetaminophen IV 1,000 MG/100 ML INFUS..BTL ONE (08:07)
[2018-03-06] MEDS ORDERED: *HR* Metoprolol 5 MG/5 ML VIAL IVP ONE (08:18)
--- NOTE | 2018-03-06 08:25 | Operative Note ---
Date of procedure: 03/06/18 Pre-op diagnosis: right distal ureteral stone with uti Post-op diagnosis: same Procedure: Cystoscopy with right 6 x 26 cm ureteral stent placement Anesthesia: GETA Surgeon: Marko Braga Was there an electrical assistant present: No Estimated blood loss (cc): 0 Specimen: none Condition: stable Disposition: PACU Procedure in Detail: Patient was prepped and draped in normal sterile fashion. Timeout procedure performed. I then inserted the cystoscope into the patient's bladder. I was able to cannulate the right ureteral orifice using a sensor wire. Once this was done a moderate amount of debris was seen coming from the right ureteral orifice. I then placed a 6 x 26 cm stent with good curl seen in the right kidney and in the bladder. I then placed a Altman catheter to aid in drainage over the next 24 hours. Procedure was ended. Patient was taken to PACU in stable condition.
[2018-03-06] MEDS ORDERED: Metoprolol 100 MG TABLET PO SCH (09:00)
[2018-03-06] MEDS ORDERED: Ondansetron 4 MG/2 ML VIAL IVP PRN (09:18)
[2018-03-06] MEDS ORDERED: Naloxone 0.4 MG/ML INJ IVP PRN (09:18)
[2018-03-06] MEDS ORDERED: *HR* FentaNYL (PF) 100 MCG/2 ML VIAL IVP PRN (09:18)
[2018-03-06] MEDS ORDERED: *HR* OxyCODONE/APAP 5/325 TABLET PO PRN (09:18)
[2018-03-06] MEDS ORDERED: 0.9 % Sodium Chloride 1,000 ML IVC SCH (09:18)
--- NOTE | 2018-03-06 11:12 | Internal Med Progress Note ---
<Sri Mesa - Last Filed: 03/06/18 11:09> Hospitalist Progress Note - Encounter Date of Encounter: 03/06/18 Time of Encounter: 10:45 - Subjective Interval History: Ms. Engle was seen at bedside this morning. At presentation her blood pressure was elevated and she was also tachycardic. This morning her blood pressure and heart rate are within normal limits. She notes that she had urinary hesitancy and urgency ongoing for the past 1 week. He also had right flank pain associated with it since the past 1 week. Yesterday she had 3 episodes of emesis that were nonbloody and also had chills. He went to the urgent care and they urged her to go to visit the hospital. This morning she is status post cystoscopy. She notes her pain has slightly improved. Currently she denies fever, chills, nausea, shortness of breath, chest pain or abdominal pain. - Exam Vitals: Temp Pulse Resp BP Pulse Ox 98.0 F 82 16 120/73 98 03/06/18 10:20 03/06/18 10:20 03/06/18 10:20 03/06/18 10:20 03/06/18 10:20 Exam: Constitutional: Alert, in no acute distress, sitting in bed HEENT: Normocephalic, atraumatic, moist mucus membranes Heart: Regular rhythm, no murmurs, no edema Lungs: lungs clear and equal bilaterally, no rhonchi, no wheeze Abdomen: diminished bowel sounds, no rigidity, mildly tender around the right flank abdomen area Back: tenderness at right flank area Extremities: No edema of lower extremity or upper extremities, warm, nontender Skin: Skin warm and dry, no lesions, no rashes, no jaundice Psych: thought content congruent, normal mood and normal affect Neurological: Alert and oriented x 3 - Assessment and Plan (1) Kidney stone on right side Current Visit: Yes Status: Acute Assessment and Plan: Status post cystoscopy with right 6 x 26 cm ureteral stent placement. 5 mm obstructive stone identified at the right ureterovesicular junction on CT abdomen and pelvis Percocet every 6 when necessary for pain control Zofran every 6 hours when necessary for nausea control Continue fluids Urology following (2) UTI (urinary tract infection) Current Visit: Yes Status: Acute Assessment and Plan: Secondary to an obstructing stone. Urinalysis was positive for nitrites as well as leukocyte esterase. Urine culture pending Plan as seen above (3) Hypertension Current Visit: Yes Status: Acute Assessment and Plan: Patient presented with systolic blood pressure over 200 Patient is apparently being titrated on blood pressure medications in an outpatient setting We will continue home metoprolol 100 mg twice a day here Blood pressure currently low to stable could be due to anesthetic affects s/p post ureterolithiasis Continue to monitor (4) Sepsis Current Visit: Yes Status: Acute Assessment and Plan: Likely secondary to Patient presented with 2 days of right lower quadrant abdominal pain and right flank pain with associated dysuria Vitals revealed hypertension, tachycardia, mild hypothermia Urinalysis revealed gross and microscopic blood, nitrates, leukocyte esterase, white blood cells Labs revealed mild leukocytosis, technically sepsis, stable clinical condition Plan Fluid bolus given and maintenance fluids started at 150 mL per hour Blood and urine cultures pending Continue Rocephin, day 1 Continuous pulse oximetry and cardiac telemetry (5) Hypokalemia Current Visit: Yes Status: Resolved Assessment and Plan: Resolved. Potassium 3.2 presentation 40 mEq given oral in the emergency department Repeat BMP in the morning (6) CORNELL on CPAP Current Visit: Yes Status: Acute Assessment and Plan: History of sleep apnea and is on CPAP at home. Will continue CPAP during her stay here. Continue supplemental oxygen at this time, given shortness of breath. (7) Morbid obesity Current Visit: Yes Status: Acute Assessment and Plan: BMI is 40.5. Changed diet from regular to low fat. (8) Thrombocytopenia Current Visit: Yes Status: Acute Assessment and Plan: Platelets were 80 upon admission. Morning platelets are 77. Thrombocytopenia could be likely due to sepsis vs other etiology given she has history of ovarian cancer We will continue to monitor We will continue to treat the underlying infection (9) DVT prophylaxis Current Visit: Yes Status: Acute Assessment and Plan: Intermittent pneumatic compression devices 3 times a day Patient currently mildly thrombocytopenic (10) Constipation Current Visit: Yes Status: Acute Assessment and Plan: Notes her last bowel movement was 2 days ago and tends to have regular bowel movements. He also associates emesis yesterday to being constipated. Plan: Continue Senna as she is currently on opiotes for pain control - Time Spent with Patient Total time spent is greater than 50% in coordination of care (as documented) at patient's floor/unit and/or counseling patient: Plan of Care Discussed with: patient Internal Medicine: Result - Labs CBC & Chem 7: 03/06/18 03:50 03/06/18 03:50 Labs: Short CBC 03/05/18 03/06/18 Range/Units 19:58 03:50 WBC 13.2 H 24.5 H D (4.3-11.1) K/mcL Hgb 15.3 13.2 D (11.5-15.4) g/dL Hct 44.6 39.5 (35.3-44.9) % Plt Count 80 L 77 L (140-400) K/mcL Neutrophils # 12.7 H 22.6 H (1.6-8.9) K/mcL BMP 03/05/18 03/06/18 19:58 03:50 Sodium 141 141 Potassium 3.2 L 4.1 D Chloride 107 111 H Carbon Dioxide 22 L 23 BUN 13 11 Creatinine 0.94 0.82 Glucose 126 H 159 H Calcium 9.7 8.5 L Liver Function 03/05/18 03/06/18 Range/Units 19:58 03:50 Total Bilirubin 1.8 H 0.7 (0.3-1.0) mg/dL AST 33 23 (13-39) Units/L ALT 17 16 (7-52) Units/L Alkaline Phosphatase 117 H 77 (34-104) Units/L Albumin 4.0 3.2 L (3.5-5.7) g/dL Urine 03/05/18 Range/Units 20:06 Urine Color [place] A (Yellow) Urine Clarity Cloudy A (Clear) Urine pH 6.0 (5.0-8.0) pH Units Ur Specific [place] 1.021 (1.010-1.025) Urine Protein Trace (Neg-Trace) mg/dL Urine Glucose (UA) Normal (Normal) mg/dL - Impressions Impressions Abdomen/Pelvis CT 03/05/18 19:38 IMPRESSION: 1. 5 mm stone at the right UV junction causes right obstructive uropathy. 2. Fatty infiltration of liver. Mild splenomegaly. D/ / 03/05/2018 21:04:58 Carmen Gallo MD / bcarter Interpreting Provider: Carmne Gallo MD Fluoroscopy 03/06/18 00:00 IMPRESSION: Intraoperative fluoroscopy provided during right ureteral stent placement. Please see the intraoperative note for complete details. D/ / Jose Luciano MD / Jose Luciano MD Interpreting Provider: Jose Luciano MD X-Ray 03/06/18 00:00 IMPRESSION: Intraoperative fluoroscopy provided during right ureteral stent placement. Please see the intraoperative note for complete details. D/ / Jose Luciano MD / Jose Luciano MD Interpreting Provider: Jose Luciano MD Consult Discharge Plan - Plan Referrals: Marvin Jade MD [Primary Care Provider] - <Marco Antonio Schwartz - Last Filed: 03/06/18 15:17> Hospitalist Progress Note - Exam Vitals: Temp Pulse Resp BP Pulse Ox 98.5 F 56 18 119/72 94 03/06/18 15:10 03/06/18 15:10 03/06/18 15:10 03/06/18 15:10 03/06/18 15:10 - Assessment and Plan (1) Kidney stone on right side Current Visit: Yes Status: Acute (2) UTI (urinary tract infection) Current Visit: Yes Status: Acute (3) Hypertension Current Visit: Yes Status: Acute (4) Sepsis Current Visit: Yes Status: Acute (5) Hypokalemia Current Visit: Yes Status: Resolved (6) DVT prophylaxis Current Visit: Yes Status: Acute (7) CORNELL on CPAP Current Visit: Yes Status: Acute (8) Morbid obesity Current Visit: Yes Status: Acute (9) Thrombocytopenia Current Visit: Yes Status: Acute (10) Constipation Current Visit: Yes Status: Acute - Time Spent with Patient Total time spent is greater than 50% in coordination of care (as documented) at patient's floor/unit and/or counseling patient: Internal Medicine: Result - Labs CBC & Chem 7: 03/06/18 03:50 03/06/18 03:50 Labs: Short CBC 03/05/18 03/06/18 Range/Units 19:58 03:50 WBC 13.2 H 24.5 H D (4.3-11.1) K/mcL Hgb 15.3 13.2 D (11.5-15.4) g/dL Hct 44.6 39.5 (35.3-44.9) % Plt Count 80 L 77 L (140-400) K/mcL Neutrophils # 12.7 H 22.6 H (1.6-8.9) K/mcL BMP 03/05/18 03/06/18 19:58 03:50 Sodium 141 141 Potassium 3.2 L 4.1 D Chloride 107 111 H Carbon Dioxide 22 L 23 BUN 13 11 Creatinine 0.94 0.82 Glucose 126 H 159 H Calcium 9.7 8.5 L Liver Function 03/05/18 03/06/18 Range/Units 19:58 03:50 Total Bilirubin 1.8 H 0.7 (0.3-1.0) mg/dL AST 33 23 (13-39) Units/L ALT 17 16 (7-52) Units/L Alkaline Phosphatase 117 H 77 (34-104) Units/L Albumin 4.0 3.2 L (3.5-5.7) g/dL Urine 03/05/18 Range/Units 20:06 Urine Color [place] A (Yellow) Urine Clarity Cloudy A (Clear) Urine pH 6.0 (5.0-8.0) pH Units Ur Specific [place] 1.021 (1.010-1.025) Urine Protein Trace (Neg-Trace) mg/dL Urine Glucose (UA) Normal (Normal) mg/dL - Impressions Impressions Abdomen/Pelvis CT 03/05/18 19:38 IMPRESSION: 1. 5 mm stone at the right UV junction causes right obstructive uropathy. 2. Fatty infiltration of liver. Mild splenomegaly. D/ / 03/05/2018 21:04:58 Carmen Gallo MD / [email or web address] Interpreting Provider: Carmen Gallo MD Fluoroscopy 03/06/18 00:00 IMPRESSION: Intraoperative fluoroscopy provided during right ureteral stent placement. Please see the intraoperative note for complete details. D/ / Jose Luciano MD / Jose Luciano MD Interpreting Provider: Jose Luciano MD X-Ray 03/06/18 00:00 IMPRESSION: Intraoperative fluoroscopy provided during right ureteral stent placement. Please see the intraoperative note for complete details. D/ / Jose Luciano MD / Jose Luciano MD Interpreting Provider: Jose Luciano MD - Attending Attestation I examined this patient and my medical decision-making was reviewed with the Resident Physician Dr. Mesa. I agree with the documented findings, disposition and treatment plan as described except to the extent set forth below. Ms. Corea is a 67 year old female with a past medical history of ovarian cancer status post total hysterectomy, nephrolithiasis, bladder repair, cholec ystectomy, goiter, hypertension pt presented to the emergency department after a day and a half of abdominal pain, right flank pain, dysuria that did not improve with outpatient therapy. CT abdomen and pelvis was performed which demonstrated an obstructive 5 mm stone at the right ureterovesicular junction. Urology was consulted, who put a stent this morning. Pt's pain is well tolerable with current meds. Gen: A, A, O x 3 Chest: Diminished BS b.l, no crackles Heart: S1S2 + RRR No murmurs Abd: Soft, NT, NO CVA tenderness a/p 1. Sepsis with UTI 2. Rt UV calculi 3. s/p Ureter stent placement cont IVF cont empirical abx <Sri Mesa - Last Filed: 03/06/18 11:09> (2) UTI (urinary tract infection) Qualifiers: Urinary tract infection type: site unspecified Hematuria presence: with hematuria Qualified Code(s): N39.0 - Urinary tract infection, site not specified; R31.9 - Hematuria, unspecified (3) Hypertension Qualifiers: Hypertension type: unspecified Qualified Code(s): I10 - Essential (primary) hypertension (4) Sepsis Qualifiers: Sepsis type: sepsis due to unspecified organism Qualified Code(s): A41.9 - Sepsis, unspecified organism <Marco Antonio Schwartz - Last Filed: 03/06/18 15:17> (2) UTI (urinary tract infection) Qualifiers: Urinary tract infection type: site unspecified Hematuria presence: with hematuria Qualified Code(s): N39.0 - Urinary tract infection, site not specified; R31.9 - Hematuria, unspecified (3) Hypertension Qualifiers: Hypertension type: unspecified Qualified Code(s): I10 - Essential (primary) hypertension (4) Sepsis Qualifiers: Sepsis type: sepsis due to unspecified organism Qualified Code(s): A41.9 - Sepsis, unspecified organism
[2018-03-06] MEDS ORDERED: Sennosides 8.6 MG TABLET PO ONE (11:43)
[2018-03-06] MEDS: *HR* Heparin 5,000 UNIT/ML VIAL SQ SCH (17:25)
[2018-03-06] MEDS: 0.9 % Sodium Chloride 1,000 ML IVC SCH (17:26)
[2018-03-06] MEDS ORDERED: cefTRIAXone 2,000 MG in Water for inj. (sterile) 20 ML 20 ML IVPB SCH (21:00)
[2018-03-06] MEDS: Metoprolol 100 MG TABLET PO SCH (22:10)
[2018-03-07] MEDS: 0.9 % Sodium Chloride 1,000 ML IVC SCH (03:48)
[2018-03-07] MEDS: *HR* Heparin 5,000 UNIT/ML VIAL SQ SCH (06:14)
[2018-03-07 07:04] LABS: Basophils % 0.1 %; Red Cell Distribution Width 13.7 % (11.5-14.5)
[2018-03-07 07:06] LABS: Hematocrit 40.2 % (35.3-44.9); Hemoglobin 12.7 g/dL (11.5-15.4); Immature Granulocytes % 0.7 % (0-4); Immature Platelets 16.7 % (1.1-6.1); Lymphocytes # 0.8 K/mcL (0.6-4.6); Mean Corpuscular HGB Conc 31.6 g/dL (31.6-35.5); Mean Corpuscular Hemoglobin 29.7 pg (28.0-33.3); Mean Corpuscular Volume 93.9 fL (83.0-100.0); Mean Platelet Volume 13.4 fL (9.4-12.4); Monocytes # 0.8 K/mcL (0.0-1.3); Monocytes % 4.6 %; Neutrophils # 15.1 K/mcL (1.6-8.9); Platelet Count 76 K/mcL (140-400); Red Blood Count 4.28 M/mcL (3.82-4.97); Segmented Neutrophils % 89.6 %
--- NOTE | 2018-03-07 07:49 | Internal Med Progress Note ---
Hospitalist Progress Note - Encounter Date of Encounter: 03/07/18 - Exam Vitals: Temp Pulse Resp BP Pulse Ox 97.4 F L 59 15 165/73 95 03/07/18 07:03 03/07/18 07:03 03/07/18 07:03 03/07/18 07:03 03/07/18 07:03 - Time Spent with Patient Total time spent is greater than 50% in coordination of care (as documented) at patient's floor/unit and/or counseling patient: Internal Medicine: Result - Labs CBC & Chem 7: 03/07/18 06:33 03/06/18 03:50 Labs: Short CBC 03/07/18 Range/Units 06:33 WBC 16.8 H (4.3-11.1) K/mcL Hgb 12.7 (11.5-15.4) g/dL Hct 40.2 (35.3-44.9) % Plt Count 76 L (140-400) K/mcL Neutrophils # 15.1 H (1.6-8.9) K/mcL - Impressions Impressions Fluoroscopy 03/06/18 00:00 IMPRESSION: Intraoperative fluoroscopy provided during right ureteral stent placement. Please see the intraoperative note for complete details. D/ / Jose Luciano MD / Jose Luciano MD Interpreting Provider: Jose Luciano MD X-Ray 03/06/18 00:00 IMPRESSION: Intraoperative fluoroscopy provided during right ureteral stent placement. Please see the intraoperative note for complete details. D/ / Jose Luciano MD / Jose Luciano MD Interpreting Provider: Jose Luciano MD Consult Discharge Plan - Plan Referrals: Marvin Jade MD [Primary Care Provider] -
--- NOTE | 2018-03-07 09:33 | Discharge Summary ---
<DelanozoraOnelia gray E - Last Filed: 03/07/18 13:01> Orders not resulted at time of discharge: Pending orders 03/05/18 20:50 Urinalysis Reflex Cult & Micro [URIN] Stat Urinalysis Reflex Cult & Micro [URIN] Stat 03/05/18 21:14 Culture,Blood [BC] Stat 03/07/18 04:00 Basic Metabolic Panel Routine Magnesium Routine Date of Encounter: 03/07/18 Time of Encounter: 09:30 - Discharge Diagnosis (1) Kidney stone on right side Priority: Primary Status: Acute Assessment and Plan: s/p post cystoscopy with right 6x26 cm ureteral stent placement 5mm obstructive stone identified at right ureterovesicular junction on CT abdomen and pelvis Patients pain has resolved Follow up with Urology as directed Percoset 5/325 mg PO Q6H PRN for pain on discharge (2) UTI (urinary tract infection) Priority: Secondary Status: Acute Assessment and Plan: secondary to obstructing stone Urinalysis positive for nitrates and leukocyte esterase Urine Culture shows no growth Will continue antibiotic therapy with oral Omnicef 300mg BID for 7 days Qualifiers: Urinary tract infection type: site unspecified Hematuria presence: with hematuria Qualified Code(s): N39.0 - Urinary tract infection, site not specified; R31.9 - Hematuria, unspecified (3) Hypertension Priority: Secondary Status: Chronic Assessment and Plan: Blood pressure today 165/73 Continue home dose of metoprolol 100mg twice daily Follow up with PCP as scheduled Qualifiers: Hypertension type: unspecified Qualified Code(s): I10 - Essential (primary) hypertension (4) Sepsis Priority: Secondary Status: Acute Assessment and Plan: Likely secondary to UTI and obstructing urethral stone. Patient still has underlying chornic hypertension, tachycardia has resolved, mold hypotheria has resolved Urinalysis showed gross hematria and microscopic blood, nitrates, leukocyte esterase, and WBC Labs show a decreas in WBC count today to 16.8 from 24.5 yesterday. Home on Omnicef 300mg BID for 7 days for UTI Blood cultures still pending. Qualifiers: Sepsis type: sepsis due to unspecified organism Qualified Code(s): A41.9 - Sepsis, unspecified organism (5) Hypokalemia Status: Resolved Assessment and Plan: Resolved Was given 40 meq oral potassium solution in ED which increased her K to within normal limits (6) CORNELL on CPAP Priority: Secondary Status: Acute Assessment and Plan: Patient with history of sleep apnea, uses CPAP at home Continued CPAP through her stay No longer in need of supplemental oxygen as her shortness of breath has resolved (7) Morbid obesity Status: Acute Assessment and Plan: BMI 43.7 Diet changed to Low fat diet yesterday (8) Thrombocytopenia Status: Acute Assessment and Plan: Morning platelets 76 this morning, decreased slightly from 80 on admission Likely due to sepsis vs other etiology Continue to treat underlying infection as above (9) Constipation Status: Acute Assessment and Plan: Patients last bowel movement was on Wednesday. She states she typically has regular bowel movements but does occasionally get constipated. She states that if she eats soem sweets she will have a bowel movement. She believes her irish toast fro this morning will help her go to the bathroom. Continue Senna due to use of opiods for pain control Hospital course: Ms. Corea is a 68 year old female who presented to the ED on 03/05/18 with worsening flank pain, was seen at Urgent care on 03/05/18 ad diagnosed with UTI adn prescribed cipro and pyridium. Pain had worsened sense then and she had shart Right sided flank pain, dysuria, subjective fevers/chills, N/V. She was admitted to [facility] and started on rocephin due to CT scan showing obstructing ureteral stone. Urology was consulted and cystoscopy with right ureteral stent placement was performed on 03/06/18 with no complications. Patient today has shown resolution of her flank pain and is feeling much better. She is able to keep down a regular diet without N/V. Discharge discussed with: patient - Time Spent with Patient Total time spent providing and/or coordinating discharge services: - Discharge Medications Prescriptions: Cefdinir [Omnicef] 300 mg PO BID #14 capsule Oxycodone HCl/Acetaminophen [Percocet 5-325 mg Tablet] 1 each PO Q6H PRN 5 Days #20 tablet PRN Reason: Pain Home Medications: RX: Ergocalciferol (VITAMIN D2) [Vitamin D2] 50,000 unit PO QWEEK 03/05/18 [History] RX: Ibuprofen [Ibu] 400 mg PO TIDWM 03/05/18 [History] RX: Levothyroxine [Synthroid] 150 mcg PO DAILY 03/05/18 [History] RX: Metoprolol Tartrate 100 mg PO BID 03/05/18 [History] RX: Phenazopyrid/Cran/Vit C/B.coag [Azo Urinary Tract Health Pack] 1 each PO TID 03/05/18 [History] Cefdinir [Omnicef] 300 mg PO BID #14 capsule 03/07/18 [Rx] Oxycodone HCl/Acetaminophen [Percocet 5-325 mg Tablet] 1 each PO Q6H PRN 5 Days #20 tablet 03/07/18 [Rx] Allergies/Adverse Reactions: Allergy/AdvReac Type Severity Reaction Status Date / Time No Known Allergies Allergy Verified 03/05/18 19:08 Date of admission: 03/06/18 03:40 Primary care physician: Marvin Jade MD Consults: 03/05/18 20:50 Consult to Urology [CONS] Stat Consulting Provider: Urology Rosario Reason for Consult: 5mm stone at R UV junction with leukocytosis and infection via UA. Spoke to Dr Braga. Time Notified: 20:51 Call Completed: Yes Discharging clinician: Marco Antonio Schwartz Anticipated date of discharge: 03/07/18 - Constitutional Vitals: Temp Pulse Resp BP Pulse Ox 97.4 F L 59 15 165/73 95 03/07/18 07:03 03/07/18 07:03 03/07/18 07:03 03/07/18 07:03 03/07/18 07:03 General appearance: Present: cooperative, A&O X 3, pleasant, no acute distress, answers questions appropriately - Head Head exam: Present: atraumatic, normal inspection, normocephalic - Neck Neck exam general surgery: Present: normal inspection, supple, trachea midline. Absent: thyromegaly - Respiratory Respiratory exam: Present: CTAB. Absent: decreased breath sounds, rales, rhonchi, wheezes - Cardiovascular Cardiovascular exam: Present: RRR. Absent: clicks, gallop, rubs - GI/Abdominal GI/Abdominal exam: Present: normal bowel sounds, soft. Absent: guarding, rigid, tenderness - Extremities Exam Extremities exam: Absent: calf tenderness, cyanotic, pedal edema - Skin Skin exam: Present: dry, intact, warm. Absent: cyanosis - Patient Status Disposition: Home, Self-Care Condition: Good Functional capacity at discharge: independent ambulation Overall status at discharge: patient is back to baseline - Discharge Instructions Instructions: Ureteral Stent Placement (DC) Follow Up With: Marvin Jade MD [Primary Care Provider] - Marko Braga MD [Partnered Physician] - Additional Instructions: Take Omnicef 300mg twice daily for 7 days for your UTI Take Percoset 5/325 mg 1 pill by mouth every 6 hours as needed for breakthrough pain While on pain medications you can continue to take stool softeners as needed for constipation - Diet and Activity Activity: increase activity as tolerated Diet: advance to your usual diet <Thallapaneni,Rambabu - Last Filed: 03/07/18 13:51> Orders not resulted at time of discharge: Pending orders 03/05/18 20:50 Urinalysis Reflex Cult & Micro [URIN] Stat Urinalysis Reflex Cult & Micro [URIN] Stat 03/05/18 21:14 Culture,Blood [BC] Stat - Discharge Diagnosis (1) Kidney stone on right side Status: Acute (2) UTI (urinary tract infection) Priority: Secondary Status: Acute Qualifiers: Urinary tract infection type: site unspecified Hematuria presence: with hematuria Qualified Code(s): N39.0 - Urinary tract infection, site not specified; R31.9 - Hematuria, unspecified (3) Hypertension Priority: Secondary Status: Chronic Qualifiers: Hypertension type: unspecified Qualified Code(s): I10 - Essential (primary) hypertension (4) Sepsis Priority: Secondary Status: Acute Qualifiers: Sepsis type: sepsis due to unspecified organism Qualified Code(s): A41.9 - Sepsis, unspecified organism (5) Hypokalemia Priority: Secondary Status: Resolved (6) DVT prophylaxis Priority: Secondary Status: Acute (7) CORNELL on CPAP Priority: Secondary Status: Acute (8) Morbid obesity Priority: Secondary Status: Acute (9) Thrombocytopenia Priority: Secondary Status: Acute (10) Constipation Priority: Secondary Status: Acute Hospital course: Ms. Corea is a 68 year old female - Time Spent with Patient Total time spent providing and/or coordinating discharge services: Date of admission: 03/06/18 03:40 Primary care physician: Marvin Jade MD Consults: 03/05/18 20:50 Consult to Urology [CONS] Stat Consulting Provider: Urology Lindsay Reason for Consult: 5mm stone at R UV junction with leukocytosis and infection via UA. Spoke to Dr Braga. Time Notified: 20:51 Call Completed: Yes - Constitutional Vitals: Temp Pulse Resp BP Pulse Ox 97.4 F L 59 15 179/118 95 03/07/18 07:03 03/07/18 07:03 03/07/18 07:03 03/07/18 11:15 03/07/18 07:03 Exam: Constitutional: Alert, in no acute distress, sitting in bed HEENT: Normocephalic, atraumatic, moist mucus membranes Heart: Regular rhythm, no murmurs, no edema Lungs: lungs clear and equal bilaterally, no rhonchi, no wheeze Abdomen: diminished bowel sounds, no rigidity, mildly tender around the right flank abdomen area Back: tenderness at right flank area Extremities: No edema of lower extremity or upper extremities, warm, nontender Skin: Skin warm and dry, no lesions, no rashes, no jaundice Psych: thought content congruent, normal mood and normal affect Neurological: Alert and oriented x 3 - Attending Attestation I examined this patient and my medical decision-making was reviewed with the Resident Physician Dr. Soriano. I agree with the documented findings, disposition and treatment plan as described except to the extent set forth below. Ms. Corea is a 67 year old female with a past medical history of ovarian cancer status post total hysterectomy, nephrolithiasis, bladder repair, cholecystectomy, goiter, hypertension pt presented to the emergency department after a day and a half of abdominal pain, right flank pain, dysuria that did not improve with outpatient therapy. CT abdomen and pelvis was performed which demonstrated an obstructive 5 mm stone at the right ureterovesicular junction. Urology was consulted, who put a stent y/d. Pt's pain is well tolerable with current meds. Gen: A, A, O x 3 Chest: Diminished BS b.l, no crackles Heart: S1S2 + RRR No murmurs Abd: Soft, NT, NO CVA tenderness a/p 1. Sepsis with UTI 2. Rt UV calculi 3. s/p Ureter stent placement Switch to PO Abx Omnicef x 7 more days will d/c her home today with PO pain meds Addendum entered and electronically signed by Onelia Soriano 03/07/18 13:58:
[2018-03-07 10:00] LABS: BUN/Creatinine Ratio 23 (6-26); Blood Urea Nitrogen 25 mg/dL (8-23); Calcium 9.3 mg/dL (8.6-10.3); Carbon Dioxide 21 mEq/L (23-29); Chloride 108 mEq/L (98-107); Glucose 155 mg/dL (70-105); Osmolality,Calculated 290 (280-300); Potassium 4.6 mEq/L (3.5-5.1); Sodium 136 mEq/L (136-145); eGFR For Non-African Americans 50 (> 60)
[2018-03-07] MEDS: Metoprolol 100 MG TABLET PO SCH (10:22)
[2018-03-07 11:40] VITALS: BP 179/118
--- NOTE | 2018-03-07 14:06 | Urology Progress Note ---
Date of Encounter: 03/07/18 (n) Time of Encounter: 14:04 - Assessment and Plan (1) Right ureteral stone Current Visit: Yes Status: Acute Assessment and plan: patient feeling much better. patient will be scheduled for return to the OR for right stone extraction (2) UTI (urinary tract infection) Current Visit: Yes Status: Acute Qualifiers: Urinary tract infection type: site unspecified Hematuria presence: with hematuria Qualified Code(s): N39.0 - Urinary tract infection, site not specified; R31.9 - Hematuria, unspecified Progress Note Narrative: patient seen. feeling much better. ucx neg. Objective Initial Vital Signs Temp Pulse Resp BP Pulse Ox 97.4 F L 120 18 223/85 95 03/05/18 19:08 03/05/18 19:08 03/05/18 19:08 03/05/18 19:08 03/05/18 19:08 - General physical appearance Present: well developed, well nourished - Respiratory Present: normal expansion, normal respiratory effort - Abdomen Present: soft. Absent: tender - Labs 03/07/18 06:33 03/07/18 09:16 Diabetes panel 03/07/18 Range/Units 09:16 Sodium 136 (136-145) mEq/L Potassium 4.6 (3.5-5.1) mEq/L Chloride 108 H (98-107) mEq/L Carbon Dioxide 21 L (23-29) mEq/L BUN 25 H (8-23) mg/dL Creatinine 1.09 (0.60-1.20) mg/dL Glucose 155 H (70-105) mg/dL Calcium 9.3 (8.6-10.3) mg/dL Calcium panel 03/07/18 Range/Units 09:16 Calcium 9.3 (8.6-10.3) mg/dL Pituitary panel 03/07/18 Range/Units 09:16 Sodium 136 (136-145) mEq/L Potassium 4.6 (3.5-5.1) mEq/L Chloride 108 H (98-107) mEq/L Carbon Dioxide 21 L (23-29) mEq/L BUN 25 H (8-23) mg/dL Creatinine 1.09 (0.60-1.20) mg/dL Glucose 155 H (70-105) mg/dL Calcium 9.3 (8.6-10.3) mg/dL Adrenal panel 03/07/18 Range/Units 09:16 Sodium 136 (136-145) mEq/L Potassium 4.6 (3.5-5.1) mEq/L Chloride 108 H (98-107) mEq/L Carbon Dioxide 21 L (23-29) mEq/L BUN 25 H (8-23) mg/dL Creatinine 1.09 (0.60-1.20) mg/dL Glucose 155 H (70-105) mg/dL Calcium 9.3 (8.6-10.3) mg/dL Consult Discharge Plan - Plan Instructions: Oxycodone/Acetaminophen (By mouth), Cefdinir (By mouth), Ureteral Stent Placement (DC) Additional Instructions: Take Omnicef 300mg twice daily for 7 days for your UTI Take Percoset 5/325 mg 1 pill by mouth every 6 hours as needed for breakthrough pain While on pain medications you can continue to take stool softeners as needed for constipation Referrals: Marko Braga MD [Partnered Physician] - Marvin Jade MD [Primary Care Provider] - Prescriptions: Cefdinir [Omnicef] 300 mg PO BID #14 capsule Oxycodone HCl/Acetaminophen [Percocet 5-325 mg Tablet] 1 each PO Q6H PRN 5 Days #20 tablet PRN Reason: Pain
== END 2018-03-07 14:10 | disposition home or self-care (01) | DRG 854 ==
LOC: EDBD → 3ANU 19:05 → EMEROOARM 19:05 → 3ANU 22:44 → MERGE 03-06 03:40
PROVIDERS: ADMIT Pediatrics; ATTEND Pediatrics